=== PATIENT | male | born 1955 | race Caucasian/White ===

== ENCOUNTER 2020-08-03 09:00 | Outpatient (RCR) | payer BC, SELFPAY | END 2020-08-06 23:55 | disposition home or self-care (01) | LOC: HO.PAOS 09:00 | PROVIDERS: Visit Provider Counselor Mental Health | DX: F43.10 Post-traumatic stress disorder, unspecified (principal) | CPT/HCPCS: 90832; 90834 ==

== ENCOUNTER 2021-09-14 14:26 | Outpatient (REF) | payer BC, SELFPAY ==
--- NOTE | ~2021-09-14 | US_ITS ---
EXAMINATION: US RETROPERITONEAL LIMITED (RENAL ONLY) CLINICAL INFORMATION: CKD stage 3a. COMPARISON: None TECHNIQUE: Real-time imaging of the kidneys. FINDINGS: RIGHT KIDNEY: 12.9 x 6.8 x 5.9 cm (SAG x AP x TRV). The kidney is normal in size and contour. Renal cortical thickness is normal. There is mild increased renal parenchymal echogenicity. No calculi or focal parenchymal lesions. No hydronephrosis. LEFT KIDNEY: 13.0 x 6.4 x 5.8 cm (SAG x AP x TRV). The kidney is normal in size and contour. Renal cortical thickness is normal. There is mild increased renal parenchymal echogenicity. No renal calculi or hydronephrosis. There is a small exophytic cyst upper pole measuring 1.5 x 1.3 x 1.4 cm. No additional imaging follow-up required. US/US renal BI IMPRESSION: 1. No hydronephrosis or caliectasis. No visible calculi. 2. Normal renal parenchymal thickness. Mild increased renal parenchymal echogenicity consistent with the clinical history. 3. Small exophytic cyst left upper pole 1.5 cm. No additional imaging follow-up required.
== END 2021-09-14 14:27 | disposition home or self-care (01) ==
LOC: HO.US 14:26
PROVIDERS: PCP Internal Medicine; Visit Provider Internal Medicine Nephrology
DX: N18.31 Chronic kidney disease, stage 3a (principal); Z79.899 Other long term (current) drug therapy
CPT/HCPCS: 76775

== ENCOUNTER 2022-05-10 08:46 | Outpatient (REF) | payer BC, SELFPAY ==
--- NOTE | ~2022-05-10 | US_ITS ---
EXAMINATION: US RETROPERITONEAL LIMITED (AORTA) CLINICAL INFORMATION: Screening. Smoker. COMPARISON: None TECHNIQUE: Cornell-scale, color Doppler and spectral Doppler evaluation of the abdominal aorta. FINDINGS: The measurements of the aorta in maximum AP and transverse dimensions respectively are as follows: Proximal: 2.9 x 2.9 cm. Mid: 2.1 x 2.4 cm. Distal: 2.0 x 2.4 cm. PSV: 106 cm/s. The measurements of the common iliac arteries in maximum AP and TRV dimensions are as follows: Right: AP: 1.0 cm. TRV: 1.3 cm. Left: AP: 1.3 cm. TRV: 1.2 cm. US/US aorta IMPRESSION: Normal caliber aorta. No abdominal aortic aneurysm seen.
== END 2022-05-10 08:47 | disposition home or self-care (01) ==
LOC: HO.HMGCX 08:46
PROVIDERS: PCP Internal Medicine; Visit Provider Internal Medicine
DX: Z13.6 Encounter for screening for cardiovascular disorders (principal); F17.210 Nicotine dependence, cigarettes, uncomplicated; E78.5 Hyperlipidemia, unspecified
CPT/HCPCS: 76775

== ENCOUNTER 2023-04-11 13:24 | Outpatient (AMB) | payer BC, SELFPAY ==
--- NOTE | 2023-04-11 13:50 | AM.OFFWIN_ITS ---
I did not see this patient. He was seen by Dr. Fernandes. Intake Vital Signs 04/11/23 13:52 Height 5 ft 11 in Weight 250 lb BMI 34.9 BP 128/74 Blood Pressure Location Lt brachial Position Sitting Pulse 60 Pulse Source Pulse Oximeter Temp 97.3 F Temp Source Temporal Artery Scan Pulse Oximetry (%) 98 Oxygen Delivery Method Room Air Intake Visit Reasons: EP Growth on lip Intake Note: Pt is here c/o bump on his lip to the left side. Patient Tobacco Use Status: Never used Tobacco Allergies No Known Allergies [No Known Allergies*] Allergy (Unverified 04/11/23 13:51) pet dander Allergy (Unknown, Uncoded 04/11/23 13:51) Itchy Eyes Do you need a note to return to daycare/school/sports/work: No HPI EP Growth on lip HPI Details 67-year-old male presents to the office for a sick visit. Patient has a lesion at the corner of his lip. [facility] Medical History BPH (benign prostatic hyperplasia) Colon polyps Diabetes GERD (gastroesophageal reflux disease) Hyperlipidemia Hypothyroidism JERRICA (obstructive sleep apnea) PTSD (post-traumatic stress disorder) Surgical History H/O colonoscopy No pertinent past surgical history Family History Father Colon cancer Mother No problems noted. Social History Alcohol intake: never Patient Tobacco Use Status: Never used Tobacco Physical Exam Vital Signs: Last Vital Signs Temp 97.3 F 04/11/23 13:52 Pulse 60 04/11/23 13:52 BP 128/74 04/11/23 13:52 Pulse Ox 98 04/11/23 13:52 Oxygen Delivery Method Room Air 04/11/23 13:52 BMI result Body Mass Index 34.9 HEENT Other: Angle of the mouth on the left side: Warty growth. No erythema or irregular margins. Assessment & Plan Assessment & Plan (1) Wart of face: Code(s): B07.9 - Viral wart, unspecified Plan: Reassurance. Patient has an upcoming follow-up appointment with his primary care next month. He should request a dermatology appointment for from him. Coding Level of Care Code Est Pt Level 3 (40796) Diagnoses Wart of face B07.9
[2023-04-11 13:52] VITALS: BP 128/74; PULSE 60; TEMP 36.3; O2SAT 98; BMI 34.9
== END 2023-04-11 14:14 | disposition home or self-care (01) ==
PROVIDERS: PCP Internal Medicine; Visit Provider Internal Medicine
DX: B07.9 Viral wart, unspecified (principal)
CPT/HCPCS: 99213

== ENCOUNTER 2024-07-22 10:38 | Outpatient (AMB) | payer BC, SELFPAY ==
--- NOTE | 2024-07-22 10:49 | AM.OFFWIN_ITS ---
Intake Vital Signs 07/22/24 10:50 Weight 250 lb BP 110/80 Blood Pressure Location Rt brachial Position Sitting Pulse 68 Pulse Source Pulse Oximeter Pulse Oximetry (%) 98 Oxygen Delivery Method Room Air Intake Visit Reasons: EP Cut LT hand ?infection Intake Note: Patient here fdor cut on top of left hand that happened about 1 week ago. Patient Tobacco Use Status: Never used Tobacco Allergies No Known Allergies [No Known Allergies*] Allergy (Unverified 07/22/24 10:52) pet dander Allergy (Unknown, Uncoded 07/22/24 10:52) Itchy Eyes Do you need a note to return to daycare/school/sports/work: No HPI HPI Comments History of Present Illness Details This is a 68-year-old male with a past medical history of diabetes, hyperlipidemia, hypothyroidism and BPH presenting for evaluation of left hand pain and redness. Patient states he was in [place], [place] last week when he cut the top of his left hand on a door liver. Patient states there was a flap of skin overlying the laceration which developed pus and redness. Patient removed the flap of skin and states the redness has persisted. He denies having any fevers, chills or hyperglycemia. Patient has used antibiotic cream topically for his symptoms. [facility] Medical History BPH (benign prostatic hyperplasia) Colon polyps Diabetes GERD (gastroesophageal reflux disease) Hyperlipidemia Hypothyroidism JERRICA (obstructive sleep apnea) PTSD (post-traumatic stress disorder) Surgical History H/O colonoscopy No pertinent past surgical history Family History Father Colon cancer Mother No problems noted. Social History Alcohol intake: never Patient Tobacco Use Status: Never used Tobacco Review of Systems Const All systems reviewed & are unremarkable except as noted in HPI and below Denies chills, Denies fatigue and Denies fever(s) Eyes Reports no additional complaints ENT Reports no additional complaints Card Reports no additional complaints Resp Reports no additional complaints Musc Reports no additional complaints Skin/Breast Reports change in pigmentation (left hand dorsal surface), Reports changing lesions (left hand dorsal surface), Reports lesions and Denies skin pain Neuro Reports no additional complaints Psych Reports no additional complaints Endo Denies fatigue Aller/Immun Reports no additional complaints Physical Exam Vital Signs: Last Vital Signs Pulse 68 07/22/24 10:50 BP 110/80 07/22/24 10:50 Pulse Ox 98 07/22/24 10:50 Oxygen Delivery Method Room Air 07/22/24 10:50 Const General: cooperative, comfortable, no acute distress, well developed, alert, awake and Physically active; No lethargic Nutritional Appearance: average body habitus Orientation/consciousness: patient oriented x3 and No lethargic Limitations: no limitations Skin Lesions: no lesions (surface avulsion L. dorsal hand 1.5cm x 1cm with surrounding erythema) Wounds: wounds noted (dorsal left hand; surrounding erythema, warmth to touch) avulsion left dorsal hand size (1.5 x 1.0cm), margins with surrounding erythema, without odor, open and with surrounding erythema Neuro General: patient oriented x3 Extrem Left upper extremity: hand Details: normal to inspection, normal capillary refill, neuromotor exam normal, neurosensory exam normal and warmth Psych Appearance: grossly normal Mental Status: mental status grossly normal Insight: Good insight present (Psych) Judgement: Good judgement present (Psych) Assessment & Plan Assessment & Plan (1) Cellulitis of left hand: Comment: No clinical evidence of lymphangitis. Patient will be discharged home with antibiotic therapy. Code(s): L03.114 - Cellulitis of left upper limb Plan: Keflex 4 times daily x7 days; patient instructed to keep the hand clean with soap and water at least twice daily and dried thoroughly. Cover with antibiotic ointment topically. Coding Level of Care Code Est Pt Level 3 (95509) Diagnoses Cellulitis of left hand L03.114 Time Spent (min) 20
[2024-07-22 10:50] VITALS: BP 110/80; PULSE 68; O2SAT 98
== END 2024-07-22 11:52 | disposition home or self-care (01) ==
PROVIDERS: Visit Provider Physician Assistant
DX: L03.114 Cellulitis of left upper limb (principal)

== ENCOUNTER → 2024-07-22 10:38 | Outpatient (BNVA) | payer BC, SELFPAY | PROVIDERS: Visit Provider Physician Assistant ==

== ENCOUNTER 2025-03-25 13:21 | Outpatient (AMB) | payer BC, SELFPAY ==
--- OUTSIDE RECORDS SUMMARY | 2025-03-25 14:10 | XMS_ITS | Encounter Summary ---
Author Organization [facility], Address [address] [place] [address] Phone Care Team Providers Care Honing Machine Set Up Operator Name Role Phone Cedric Geiger Primary Care Provider [phone] Encounter Details Date Type Department Care Team (Late st Contact Info) Description 09/14/2021 Documentation Only [facility] [address] [place] [id number] Shlomo Jimenes MD [address] [place] [address] [place] [address] Social History Tobacco Use Types Packs/Day Years Used Date Smoking Tobacco: Former Cigarettes Alcohol Use Standard Drinks/Week Comments Not Currently 0 (1 standard drink = 0.6 oz pur e alcohol) Sex and Gender Information Value Date Recorded Sex Assigned at Not on file Legal Sex Male 1:17 PM EST Gender Identity Not on file Sexual Orientation Not on file Occupation Industry Job Start Date Job End Date Retired Not on file Not on file Not on file documented as of this encounter Plan of Treatment Upcoming Encounters Date Type Department Care Team (Late st Contact Info) Description 07/08/2025 2:30 PM EST Office Visit [facility] [place] [address] [address] [place] [address] Shlomo Jimenes MD [address] [place] [address] documented as of this encounter Visit Diagnoses Not on filedocumented in this encounter Care Teams Honing Machine Set Up Operator Relationship Specialty Start Date End Date Cedric Geiger [address] [place] [address] PCP - General Family Medicine 07/09/24 documented as of this encounter
--- OUTSIDE RECORDS SUMMARY | 2025-03-25 14:10 | XMS_ITS | Clinical Summary ---
Author Organization [facility] Address [address] [place] [address] Phone Care Team Providers Care Yeast Pumper Name Role Phone Cedric Geiger MD Primary Care Provider [phone] Allergies No known active allergies Medications alfuzosin (UROXATRAL) 10 mg 24 hr tablet Take 1 tablet by mouth daily. 11/29/19 22 Active citalopram (CELEXA) 20 MG tablet Take 1 tablet by mouth daily. 01/16/20 22 Active finasteride (PROSCAR) 5 mg tablet Take 1 tablet by mouth daily. 11/12/19 22 Active topiramate (TOPAMAX) 100 MG tablet Take 1 tablet by mouth nightly at bedtime. 01/13/20 22 Active multivitamins capsule Take 1 capsule by mouth daily. Active cloNIDine HCL (CATAPRES) 0.1 MG tablet TAKE 2 TABLETS BY MOUTH EVERY DAY AT BEDTIME 180 tablet 3 02/10/20 22 Active LORazepam (ATIVAN) 1 MG tablet Take 1 tablet by mouth daily as needed. 04/08/20 22 Active cyanocobalamin, vitamin B-12, (VITAMIN B12 ORAL) Take 3,000 mg by mouth. Active ferrous sulfate (IRON ORAL) Take 80 mg by mouth. Active gabapentin (NEURONTIN) 300 MG capsule Take 1 capsule (300 mg total) by mouth nightly at bedtime. 30 capsule 06/10/20 22 Active metFORMIN (GLUCOPHAGE) 1000 MG tabletIndicatio ns:Type 2 diabetes mellitus with stage 3a chronic kidney disease, without long-term current use of insulin Take 1 tablet (1,000 mg total) by mouth 2 (two) times a day with meals. 180 tablet 3 03/21/20 24 Active FARXIGA 10 mg tabletIndicatio ns:Type 2 diabetes mellitus with stage 3a chronic kidney disease, without long-term current use of insulin Take 1 tablet (10 mg total) by mouth daily. 90 tablet 3 06/24/20 24 Active clotrimazole (LOTRIMIN) 1 % creamIndication s:Jock itch Apply topically 2 (two) times a day. 60 g 2 06/24/20 24 Active levothyroxine (SYNTHROID, LEVOTHROID) 150 MCG tabletIndicatio ns:Hypothyroidi sm due to Ruddy's thyroiditis Take 1 tablet (150 mcg total) by mouth every morning. 90 tablet 3 10/11/19 25 Active atorvastatin (LIPITOR) 80 MG tabletIndicatio ns:Hyperlipidem ia TAKE 1 TABLET BY MOUTH NIGHTLY AT BEDTIME. 90 tablet 3 01/10/20 25 Active ezetimibe (ZETIA) 10 mg tabletIndicatio ns:Hyperlipidem ia TAKE 1 TABLET BY MOUTH EVERY DAY 90 tablet 3 03/03/20 25 Active pantoprazole (PROTONIX) 20 MG tabletIndicatio ns:Gastroesopha geal reflux disease without esophagitis Take 1 tablet (20 mg total) by mouth daily. 90 tablet 3 03/25/20 25 Active ezetimibe (ZETIA) 10 mg tabletIndicatio ns:Hyperlipidem ia Take 1 tablet (10 mg total) by mouth daily. 90 tablet 3 03/21/20 24 025 Discontinued pantoprazole (PROTONIX) 20 MG tabletIndicatio ns:Gastroesopha geal reflux disease without esophagitis Take 1 tablet (20 mg total) by mouth daily. 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 Assessment & Plan (07/04/2024 9:57 AM EST): He is now in a subclinical hypothyroid state so I have no choice but to increase the dose of levothyroxine from 125 250 mcg. He states that he was on this dose prior. Will repeat thyroid function studies in 3 months time. Assessment & Plan (07/04/2023 10:46 AM EST): Chemically and clinically euthyroid on levothyroxine 125 mcg continue current dose repeat lab work prior to the follow-up visit in 1 year. Assessment & Plan (04/06/2023 10:11 AM EDT): Continues in a subclinical hypothyroid state but improving. Will increase the dose of levothyroxine from 100 to 125 mcg daily. He will repeat thyroid function studies prior to follow-up visit in 3 months. Assessment & Plan (12/23/2022 9:53 AM EDT): He is currently in a subclinical hypothyroid state with clinical findings of hypothyroidism. I increase the dose of levothyroxine from 75 to 100 mcg. Asked him to repeat thyroid function studies prior to the follow-up visit in 3 months time. Assessment & Plan (09/20/2022 9:09 AM EST): The patient continues in a hypothyroid state I will increase the dose of levothyroxine to 75 mcg daily. Unfortunately he is taking multivitamins and iron supplements concurrently with levothyroxine and the calcium and iron will bind levothyroxine and prevent absorption. I told him he must not take the multivitamins and iron concurrently with levothyroxine he must wait at least 4 hours. Despite this his TSH was elevated at 18 so this is why I am increasing the dose of levothyroxine to 75 mcg. He should repeat thyroid function studies in 3 months time. Abnormal results of thyroid function studies 12/2021 Assessment & Plan (06/01/2022 4:00 PM EDT): Patient had been on lithium which can cause hypothyroidism. I do not see elevated TSH but at one point he was placed on levothyroxine and his TSH was close to being suppressed. Possibly the medication was discontinued because thyroid functions are now in the normal reference range. The patient states that he has family history of thyroid disorder so we will check thyroid antibodies and repeat thyroid function studies including free T4 and free T3. Furthermore he states that he feels a nodule in his throat. I did not palpate any thyroid nodules but then he has a short neck and is difficult to palpate. I did not palpate thyromegaly but I will refer him for an ultrasound of the thyroid gland. 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 I suggested that he speak with his primary care for further evaluation. Assessment & Plan (06/01/2022 4:01 PM EDT): Is receiving intra-articular corticosteroid injections but apparently only has received 2 injections. He states that the bruising is new and it may be due to the intra-articular corticosteroid injections. I will check fasting cortisol which may be suppressed if he is getting intra-articular corticosteroids. Bobbi syndrome or elevated cortisol will cause bruising. I will check a CBC to make sure his platelet count is in the reference range. [facility] maintenance 06/01/2022 Assessment & Plan (09/20/2022 9:12 AM EST): Because he has been on lithium before I checked intact PTH levels which were within the reference range no further work-up. Assessment & Plan (06/01/2022 4:01 PM EDT): Unclear if the patient has osteoporosis I asked him to send me DXA scan. He does have kyphosis. Is been on lithium before which can result in parathyroid abnormality so I will check PTH levels. Serum calcium levels appear to be in the reference range. Routine general medical exam ination at a health care facility 04/11/2022 Assessment & Plan (04/11/2022 12:47 PM EDT): See wrap up All screenings UTD Need for hepatitis C screening test 02/03/2022 Assessment & Plan (02/03/2022 2:36 PM EDT): Will check lab Hyperlipidemia 02/03/2022 Assessment & Plan (05/30/2022 1:08 AM EDT): Patient convinced that worsening DM2 caused by his statin medication Attempted to educate him regarding current Standards of care, etc. Patient declines statin for the moment Wants to discuss with Endo Assessment & Plan (04/11/2022 12:47 PM EDT): Check u/s for AAA Assessment & Plan (02/03/2022 2:35 PM EDT): Controlled on meds Type 2 diabetes mellitus wit h stage 3a chronic kidney disease, without long-term current use of insulin 02/03/2022 Assessment & Plan (05/30/2022 1:07 AM EDT): Long discussion with patient DM2 has become mildly uncontrolled I had advised med change However patient very upset Feels that his statin medication started by his prior PCP Has caused his worsening DM2 Denies changes in diet/exercise as cause for worsening symptoms I attempted to educate him that it's likely multifactorial Patient not currently able to hear what I was trying to communicate Request ref to Endo for further evaluation Assessment & Plan (04/11/2022 12:46 PM EDT): Uncontrolled on last labs. However, patient states diet has changed in last 2 months. Will check HgbA1c today Aware that it's not quite 3 months Assessment & Plan (02/03/2022 2:35 PM EDT): Unclear if stable, check lab Gastroesophageal reflux disease without esophagi tis 02/03/2022 Assessment & Plan (06/24/2024 9:28 AM EDT): Patient taking his medication as prescribed. He denies any side effects or worsening of symptoms from his GERD. Assessment & Plan (02/03/2022 2:36 PM EDT): Stable on med Acute adjustment disorder wi th mixed anxiety and depressed mood 02/03/2022 Assessment & Plan (06/24/2024 9:28 AM EDT): Patient with history of PTSD due [place] He is following with a psychiatrist who is managing his medications. Assessment & Plan (05/30/2022 1:09 AM EDT): Clearly contributing to current higher emotional state Attempted to de-escalate his anger without much success Patient agrees to f/u with his psych care team Assessment & Plan (04/11/2022 12:47 PM EDT): Currently stable Assessment & Plan (02/03/2022 2:36 PM EDT): Some depression No SI Tapering off Viola F/u with psych care team Chronic bilateral low back pain 02/03/2022 Assessment & Plan (02/03/2022 2:36 PM EDT): Chronic Continue to do exercises Immunization due 02/03/2022 Assessment & Plan (04/11/2022 12:47 PM EDT): He defers shingrix to next OV Assessment & Plan (02/03/2022 2:21 PM EDT): Declines pneumonia vaccine today He's educated regarding risks Resolved Problems Problem Noted Date Diagnosed Date Resolved Date Benign essential hypertension 02/03/2022 02/03/2022 Hypothyroidism 02/03/2022 06/01/2022 Assessment & Plan (04/11/2022 12:46 PM EDT): Off of Viola Unclear if he still needs to be on Levothyroxine Check TSH today Assessment & Plan (02/03/2022 2:36 PM EDT): Unclear if stable, check lab Encounters Date Type Department Care Team Description 03/02/2025 Refill [facility] [address] [place] [address] Cedric Geiger MD Medication Refill 01/09/2025 Refill [facility] [address] [place] [address] Cedric Geiger MD Medication Refill from Last 3 Months Immunizations Immunization Administration Dates Next Due COVID-19, Unspecified Formulation 08/23/2022 Influenza High-Dose Quadriva lent Preservative Free IM 05/16/2022,05/09/2021 Influenza High-Dose Trivalen t Preservative Free IM 05/04/2024 Influenza Quadrivalent Adjuv anted Preservative Free IM 05/03/2023 Influenza Quadrivalent MDCK Preservative Free IM 05/09/2019 Influenza Quadrivalent MDCK w/Preservative IM 05/07/2020 Influenza Quadrivalent Prese rvative Free IM 04/26/2016 Influenza Quadrivalent w/ Pr eservative IM 05/16/2018,05/22/2017 Influenza Trivalent w/ Preservative IM 2,03/30/2012 Influenza, Unspecified Formulation 05/04,05/03/2023,05/16/2022,05/09,05/07/2020,05/09/2019,05/16/2018 ,05/22/2017,04/26/2016,05/18/2015 Pneumococcal conjugate PCV13 04/11/2022 Pneumococcal polysaccharide PPSV23 03/12/2015 RSV Vaccine (monovalent, adjuvanted) 01/02/2024 Tdap 05/07/2018 Tetanus toxoid, unspecified formulation 07/07/2008 Family History Medical History Relation Comments Cancer Father Diabetes Mother Relation Status Comments Father Mother Alive Social History Tobacco Use Types Packs/Day Years Used Date Smoking Tobacco: Former Cigarettes 2 4 1 2 - 1975 Smokeless Tobacco: Never Tobacco Cessation:Counseling Given: Not Answered Alcohol Use Standard Drinks/Week Comments Not Currently 0 (1 standard drink = 0.6 oz pur e alcohol) Child or Family Care Answer Date Record ed Do you have problems with on e of the following making it difficult for you to work, study, or receive health care? No 03/21/2024 Education Answer Date Recorded Are you interested in more education? Not on ronnie e 04/11/2024 Are you concerned about learning? Not on file 04/11/2024 No 04/11/2024 No 04/11/2024 Food Answer Date Recorded Within the past 6 months we worried whether our food would run out before we got money to buy more. Never True 03/21/2024 Within the past 6 months the food we bought just didn't last and we didn't have enough money to get more. Never True Residential Stability Answer Date Recor ded What is your housing situation today? I have valentina zapata 03/21/2024 How many times have you move d in the past 12 months? Zero (I did not move) 03/21/2024 Paying for Meds Answer Date Recorded Do you have trouble paying for medicines? No 03/21/2024 Paying Utility Bills Answer Date Record ed Do you have trouble paying your heating or elect ricity bill? No 03/21/2024 Transportation Answer Date Recorded Has the lack of transportati on kept you from medical appointments or from getting medications? No 03/21/2024 Unemployment Answer Date Recorded Are you currently unemployed or working on a part-time or temporary basis, and looking for work? No 04/11/2022 Digital Access Answer Date Recorded No 03/21/2024 Yes 03/21/2024 Do you have reliable internet access at home? Ye s 03/21/2024 Do you have a device (e.g., phone, tablet, computer) with a working camera? Yes 03/21/2024 Intimate Partner Violence Answer Date R ecorded Denied Basic Needs Not on file 03/21/2024 In the past 12 months have y ou been in a relationship with a person who hurts, threatens, or tries to control you? No 03/21/2024 Worried food would run out Not on file 03/21 In the past 12 months have y ou been in a relationship with a person who hurts, threatens, or tries to control you? No 03/21/2024 Sex and Gender Information Value Date Recorded Sex Assigned at Male 02/03/2022 2:00 PM EDT Legal Sex Male 11:26 AM EDT Gender Identity Male 02/03/2022 2:00 PM EDT Sexual Orientation Choose not to disclose 2021 12:39 PM EDT Last Filed Vital Signs Vital Sign Reading Time Taken Comments Blood Pressure 128/70 12/09/2024 9:44 AM EDT Pulse 64 12/09/2024 9:44 AM EDT Temperature 36.6 C (97.9 F) 06/24/2024 8:15 AM EDT Respiratory Rate 16 04/11/2022 10:34 AM EDT Oxygen Saturation 98% 12/09/2024 9:44 AM EDT Inhaled Oxygen Concentration - - Weight 113.4 kg (250 lb) 12/09/2024 9:44 AM EDT Height 182.9 cm (6' 0.01 ) 12/09/2024 9:44 AM ED T Body Mass Index 33.9 12/09/2024 9:44 AM EDT Plan of Treatment Upcoming Encounters Date Type Department Care Team (Late st Contact Info) Description 06/10/2025 9:00 AM EDT Office Visit [facility] [address] [place] [address] Cedric Geiger MD [address] [place] [address] [email or web address] 10/14/2025 9:30 AM EST Office Visit [facility] [address] [place] [address] David Patel DO [address] [place] [address] [email or web address] Health Maintenance Due Date Last Done Comments COLOGUARD 2000 FIT TEST 2000 FOBT 2000 SIGMOIDOSCOPY 2000 VIRTUAL COLONOSCOPY 2000 ZOSTER VACCINES (1 of 2) 2005 DIABETIC EYE EXAM 07/15/2022 07/15/2021 COVID-19 VACCINE ( season) 2024 01/02/2024, 05/18/2023, 08/23/2022, Additional history exists DEPRESSION SCREENING 03/21/2025 03/21/2024, 02/04/20 22 BLOOD PRESSURE 06/10/2025 12/09/2024 HEMOGLOBIN A1C 06/10/2025 12/09/2024, 05/29, 12/18/2023, Additional history exists TSH LEVEL 10/01/2025 10/01/2024, 05/29, 06/16/2023, Additional history exists CREATININE LEVEL 12/09/2025 12/09/2024, , 02/03/2022, Additional history exists PNEUMOCOCCAL VACCINES (50+ years) (3 of 3 - PCV20 or PCV21) 04/11/2027 04/11/2022, 03/12/2015 Adult Td,Tdap Booster 05/07/2028 05/07/2018 COLONOSCOPY 10/10/2029 10/10/2019 COLORECTAL CANCER SCREENING 10/10/2029 HEPATITIS C SCREENING Completed 02/03/2022 ABDOMINAL AORTIC ANEURYSM (AAA) SCREENING Completed 04/11/2022 RSV VACCINE Completed 01/02/2024 SMOKING STATUS SCREENING (Once After 26 Yrs) Completed 12/09/2024 HEPATITIS A VACCINES Aged Out No long er eligible based on patient's age to complete this topic HIB VACCINES Aged Out No longer eligi ble based on patient's age to complete this topic MENINGOCOCCAL VACCINES (ACWY) Aged Out No longer eligible based on patient's age to complete this topic MENINGOCOCCAL VACCINES (B) Aged Out N o longer eligible based on patient's age to complete this topic Medical Devices Not on file Procedures Procedure Name Priority Date/Time Associated Diagnosis Comments HEMOGLOBIN A1C Routine 12/09/2024 10:44 AM EDT Type 2 diabetes mellitus with stage 3a chronic kidney disease, without long-term current use of insulin COMPREHENSIVE METABOLIC PANEL Routine 12/09/2024 10:44 AM EDT Type 2 diabetes mellitus with stage 3a chronic kidney disease, without long-term current use of insulin TSH Routine 10/01/2024 10:05 AM EST 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 US ABDOMINAL AORTIC SCREENING Routine 04/11/2022 2:29 PM EDT Hyperlipidemia, unspecified hyperlipidemia type Routine general medical examination at a health care facility HEPATITIS C ANTIBODY, QUALITATIVE Routine 02/03/2022 2:37 PM EDT Need for hepatitis C screening test DIABETES EYE EXAM FOR RESULT ENTRY ONLY Routine 07/15/2021 COLONOSCOPY FOR RESULT ENTRY ONLY Routine 10/10/2019 from Last 3 Months or Most Recently Relevant to Health Maintenance Results * (ABNORMAL) Comprehensive metabolic panel (12/09/2024 10:44 AM EDT) SODIUM 139 133 - 146 mmol/L [facility] POTASSIUM 4.9 3.3 - 5.1 mmol/L [facility] CHLORIDE 105 96 - 108 mmol/L [facility] CO2 23 21 - 35 mmol/L [facility] BUN 32(H) 6 - 19 mg/dL [facility] CREATININE 1.70(H) 0.5 - 1.5 mg/dL [facility] GLUCOSE 121(H) 70 - 99 mg/dL [facility] ALBUMIN 4.3 3.9 - 4.8 g/dL [facility] TOTAL PROTEIN 7.4 6.5 - 8.0 g/dL [facility] CALCIUM 9.5 8.4 - 10.3 mg/dL [facility] ALKALINE PHOSPHATASE 87 39 - 117 U/L [facility] TOTAL BILIRUBIN 0.4 0.0 - 1.2 mg/dL [facility] AST 16 0 - 37 U/L [facility] ALT 12 0 - 40 U/L [facility] GLOBULIN 3.1 1 - 4.8 g/dL [facility] EGFR 43(L) >59 mL/min/1.7 3m2 [facility] Comment:Estimated glomerular filtration rate calculated using the CKD-EPI refit equation. ANION GAP 16 10 - 20 mmol/L [facility] Blood 12/09/2024 10:4 4 AM EDT 12/09/2024 10:52 AM EDT us Cedric Geiger MD LAB BLOOD ORDERABLES Final Resul t [facility] [address] [place] [address] * (ABNORMAL) Hemoglobin A1c (12/09/2024 10:44 AM EDT) HEMOGLOBIN A1C 7.3(H) 4.3 - 5.8 % [facility] Blood 12/09/2024 10:4 4 AM EDT 12/09/2024 10:52 AM EDT Cedric Geiger MD LAB BLOOD ORDERABLES Final Resul t Performing Organization Address [facility] Co de Phone Number [address] [address] * TSH (10/01/2024 10:05 AM EST) TSH 0.90 0.27 - 4.20 uIU/mL [facility] Blood 10/01/2024 10:0 5 AM EST 10/01/2024 10:09 AM EST David Patel DO LAB BLOOD ORDERABLES Final Resul t Performing Organization Address [facility] de Phone Number [address] [address] * Hepatitis C antibody, qualitative (02/03/2022 2:37 PM EDT) Pathologist [facility] HCV NON-REACTIV E NON-REACTI VE [facility] Blood 02/03/2022 2:37 PM EDT 02/03/2022 2:44 PM EDT Lore Kat MD LAB BLOOD ORDERABLES Final R esult Performing Organization Address [facility] Co de Phone Number [address] [address] * [facility] DIABETES EYE EXAM FOR RESULT ENTRY ONLY (07/15/2021) Vijaya Nj MD HEALTH MAINTENANCE Final Result * [facility] COLONOSCOPY FOR RESULT ENTRY ONLY (10/10/2019) Vijaya Nj MD HEALTH MAINTENANCE Final Result from Last 3 Months or Most Recently Relevant to Health Maintenance Insurance [employer] Care Teams Yeast Pumper Relationship Specialty Start Date End Date Cedric Geiger MD [address] [place] [address], [address] [place], [place] [id number] [email or web address] PCP - General Family Medicine 03/21/24 Additional Source Comments The information contained in this document represents components of the legal health record. It is not the complete legal health record.[facility]
[2025-03-25 14:48] VITALS: BP 114/62; PULSE 78; O2SAT 97; BMI 34.9
--- NOTE | 2025-03-25 14:48 | AM.OFFWIN_ITS ---
Intake Vital Signs 03/25/25 14:48 Height 5 ft 11 in Weight 250 lb BMI 34.9 BP 114/62 Blood Pressure Location Rt brachial Position Sitting Pulse 78 Pulse Source Pulse Oximeter Pulse Oximetry (%) 97 Oxygen Delivery Method Room Air Intake Visit Reasons: EP-rt ear ache Patient Tobacco Use Status: Never used Tobacco [employer] Required: No Allergies No Known Allergies (No Known Allergies*) Allergy (Verified 03/25/25 14:54) pet dander Allergy (Unknown, Uncoded 07/22/24 10:52) Itchy Eyes Medication List - Last Reconciled 03/25/25 by Maki Cramer PA-C alfuzosin ER 10 mg PO DAILY atorvastatin 80 mg PO DAILY cholecalciferol (vitamin D3) 25 mcg PO BEDTIME citalopram 20 mg PO DAILY clonidine HCl mg PO ezetimibe 10 mg PO DAILY finasteride 5 mg PO DAILY gabapentin mg PO levothyroxine 150 mcg PO DAILY metformin 1,000 mg PO BID pantoprazole 40 mg PO DAILY pioglitazone 30 mg PO DAILY Do you need a note to return to daycare/school/sports/work: No HPI HPI Comments History of Present Illness Details History - The patient is a 69-year-old male pres enting with ear pain and cough. - Right ear pain has been present for ov er a week, with mild erythema noted on examination. - A mild cough has been ongoing for the past week, with no shortness of breath or wheezing reported. - The patient describes significant fati jameel, feeling very tired and running out of gas for over a week. - Smoking history: The patient quit smok ing many years ago, with no history of asthma or COPD. Physical Exam General: Cooperative, healthy appearing, comfortable and no acute distress Orientation/consciousness: Patient oriented x3 Limitations: No limitations Head: Normal to inspection Ears: External ears normal bilaterally, right TM with erythema, bulging and loss of landmarks with some purulence. Left TM with cerumen Nose: Normal external nose present, Normal nares present and No nasal discharge present Face and sinus: Normal facial exam and Yes sinuses nontender Mouth: Normal oral and palatal mucosa present and moist mucous membranes Throat: Yes tonsils normal, Yes uvula midline. Posterior oropharynx erythema, no exudates Eyes: Appearance normal, both eyes and all related structures Neck: Normal visual inspection, full ROM Respiratory: Clear to auscultation bilaterally. Normal respiratory effort, able to speak in complete sentences, actively coughing, no respiratory distress, not tachypneic, no tripod positioning and no use of accessory muscles Cardiovascular: Regular rate and rhythm. Normal S1 and S2 Skin: No rashes or lesions noted Neuro: Patient oriented x3 Extremities: Normal to inspection and Yes no clubbing, cyanosis or edema PFSH Medical History BPH (benign prostatic hyperplasia) Colon polyps Diabetes GERD (gastroesophageal reflux disease) Hyperlipidemia Hypothyroidism JERRICA (obstructive sleep apnea) PTSD (post-traumatic stress disorder) Surgical History H/O colonoscopy No pertinent past surgical history Family History Father Colon cancer Mother No problems noted. Social History Alcohol intake: never Patient Tobacco Use Status: Never used Tobacco Review of Systems Const All systems reviewed & are unremarkable except as noted in HPI and below Physical Exam Vital Signs: Last Vital Signs Pulse 78 03/25/25 14:48 BP 114/62 03/25/25 14:48 Pulse Ox 97 03/25/25 14:48 Oxygen Delivery Method Room Air 03/25/25 14:48 BMI result Body Mass Index 34.9 Assessment & Plan Assessment & Plan (1) Otitis media of right ear: Code(s): H66.91 - Otitis media, unspecified, right ear Qualifiers: Otitis media type: suppurative Chronicity: acute Recurrence: non- recurrent Spontaneous tympanic membrane rupture: without spontaneous rupture Qualified Code(s): H66.001 - Acute suppurative otitis media without spontaneous rupture of ear drum, right ear Plan: Plan - Acute Otitis Media: Prescribed amoxicillin to be taken twice daily for five days to address the infection. - Recommended tessalon pearls as a cough suppressant to be taken at bedtime to aid in restful sleep. - Advised to monitor symptoms and consider home testing for COVID-19 if symptoms persist or worsen. Patient was informed and verbally consented to the use of an ambient scribe for clinic note documentation during this visit Medications: New amoxicillin 875 mg PO Q12H 10 tabs 0RF benzonatate 200 mg PO BEDTIME PRN 10 caps 0RF cough Coding Level of Care Code New Pt Level 3 (33540) Diagnoses Non-recurrent acute suppurative otitis media of right ear without spontaneous rupture of tympanic membrane H66.001 Otitis media type: suppurative Chronicity: acute Recurrence: non-recurrent Spontaneous tympanic membrane rupture: without spontaneous rupture
== END 2025-03-25 15:23 | disposition home or self-care (01) ==
PROVIDERS: Visit Provider Physician Assistant
DX: H66.001 Acute suppurative otitis media without spontaneous rupture of ear drum, right ear (principal)